=== PATIENT | female | born 1960 | race Caucasian/White ===

== ENCOUNTER → 2023-12-07 | Emergency (ER) | payer OTHER, SELFPAY ==
[~2023-12-07] MED LIST: ALBUTEROL 2.5 MG/3 ML NEB SOL ONE; IPRATROPIUM BROM 0.5MG/2.5ML ONE; METHYLPREDNISOLONE 125 MG INJ ONE
--- NOTE | 2023-12-07 19:43 | RAD REPORT ---
EXAM DESCRIPTION: RAD - Chest Single View - 12/07/2023 7:36 pm CLINICAL HISTORY: DYSPNEA COMPARISON: Chest Single View dated 05/23/2017; CHEST SINGLE VIEW dated 03/07/2011; CHEST PA AND LAT 2 VIEW dated 10/30/2004; Angio Aorta For Dissection dated 05/23/2017 FINDINGS: Lines: None. Lungs: No evidence of edema or pneumonia. Large lung volumes with flattening of the hemidiaphragms. Pleural: No significant pleural effusions or pneumothorax. Cardiac: The heart size is within normal limits. Mediastinum: Within normal limits. Bones: No acute fractures. Other: None IMPRESSION: No acute cardiopulmonary disease.
[2023-12-07 20:22] LABS: Absolute Basophils 0.1 K/uL (0-0.5); Absolute Eosinophils 0.1 K/uL (0-0.5); Absolute Lymphocytes (CBC) 1.6 K/uL (0.7-4.9); Absolute Monocytes 0.7 K/uL (0.1-1.3); Absolute Neutrophil 7.3 K/uL (1.8-8.0); Hemoglobin 11.7 g/dL (12.0-15.0); MCHC 33.4 g/dL (32.0-36.0); MCV 86.8 fL (80-100); MPV 7.7 fL (7.6-11.3); Monocytes % 6.9 % (3.3-12.3); Neutrophils % 75.1 % (41.7-73.7); Nucleated Red Blood Cells % 0.1 % (0-0); Platelets 419 thou/uL (152-406); RBC Red Blood Cell Count 4.04 M/uL (3.86-4.86); Red Cell Distribution Width 16.2 % (12.1-15.2)
[2023-12-07 20:35] LABS: ALT/SGPT 17 U/L (13-56); AST/SGOT 16 U/L (15-37); Albumin 3.8 g/dL (3.4-5.0); Alkaline Phosphatase 76 U/L (45-117); Anion Gap 8.4 mEq/L (5.0-15.0); BUN Blood Urea Nitrogen 8 mg/dL (7-18); Bicarbonate 27 mEq/L (21-32); Bilirubin Total 0.2 mg/dL (0.2-1.0); Globulin 3.7 g/dL (2.3-3.5); Glomerular Filtration Rate 87 ml/min (=/>90); Glucose Level 107 mg/dL (74-106); Magnesium 2.2 mg/dL (1.6-2.4); NT PRO-BNP 112 pg/mL (<125); Potassium 3.4 mEq/L (3.5-5.1); Protein, Total 7.5 g/dL (6.4-8.2); Sodium Level 138 mEq/L (136-145); Troponin High Sensitivity 5.1 pg/mL (<58.9)
[2023-12-07 20:41] LABS: Bilirubin Direct < 0.1 mg/dL (0-0.2); Bilirubin Indirect, Calculated ND mg/dL (0.2-0.8)
--- NOTE | 2023-12-07 20:53 | ER ---
Nurse's Notes [facility] Name: Liliya Shah Age: 63 yrs Sex: Female : 1960 Arrival Date: 12/07/2023 Time: 19:11 Bed 18 Private MD: Diagnosis: Acute bronchitis, unspecified Presentation: 12/06 19:24 Chief complaint: Patient states: Pt c/o difficulty breathing and cough that got worse tl4 last . Pt also c/o ongoing intermittent numbness in her face, neck and arm. Pt denies fever/chills. Coronavirus screen: At this time, the client does not indicate any symptoms associated with coronavirus-19. Ebola Screen: No symptoms or risks identified at this time. Initial Sepsis Screen: Does the patient meet any 2 criteria? No. Patient's initial sepsis screen is negative. Does the patient have a suspected source of infection? No. Patient's initial sepsis screen is negative. Risk Assessment: Do you want to hurt yourself or someone else? Patient reports no desire to harm self or others. Onset of symptoms was December 05, 2023. 19:24 Method Of Arrival: [facility]: [facility] tl4 19:24 Acuity: NIKITA 3 tl4 Triage Assessment: 19:29 General: Appears distressed, Behavior is calm, cooperative. Pain: Denies pain. EENT: tl4 Denies blurred vision nasal congestion, difficulty swallowing. Neuro: Level of Consciousness is awake, alert, obeys commands, Oriented to person, place, time, situation, Speech is normal, Facial symmetry appears normal. Cardiovascular: Capillary refill < 3 seconds Patient's skin is warm and dry. Rhythm is sinus tachycardia. Respiratory: Reports shortness of breath cough that is Breath sounds are coarse bilaterally. GI: No deficits noted. No signs and/or symptoms were reported involving the gastrointestinal system. : No deficits noted. No signs and/or symptoms were reported regarding the genitourinary system. Derm: No deficits noted. No signs and/or symptoms reported regarding the dermatologic system. Musculoskeletal: No deficits noted. No signs and/or symptoms reported regarding the musculoskeletal system. Historical: - Allergies: 19:27 Sulfa (Sulfonamide Antibiotics); tl4 - Home Meds: 19:27 hydrocodone-acetaminophen 10-325 mg Oral tablet [Active]; carvedilol 6.25 mg oral tl4 tablet 1 tab daily [Active]; - PMHx: 19:27 Hypertension; tl4 - PSHx: 19:27 Tonsillectomy; Hysterectomy; tl4 - Immunization history:: Adult Immunizations unknown. - Social history:: Smoking status: Patient reports the use of cigarette tobacco products, smokes one pack cigarettes per day. - Family history:: not pertinent. Screenin:33 [facility] ED Fall Risk Assessment (Adult) History of falling in the last 3 months, tl4 including since admission No falls in past 3 months (0 pts) Confusion or Disorientation No (0 pts) Intoxicated or Sedated No (0 pts) Impaired Gait No (0 pts) Mobility Assist Device Used No (0 pt) Altered Elimination No (0 pt) Score/Fall Risk Level 0 - 2 = Low Risk Oriented to surroundings, Maintained a safe environment, Educated pt \T\ family on fall prevention, incl call for assistance when getting out of bed, Assessed \T\ reinforced patient's understanding of fall precautions, Hourly rounding (assess needs \T\ fall precautionary measures) done, Used ambulatory aids as needed (educated on \T\ assisted with), Used gait belt as appropriate. Abuse screen: Denies threats or abuse. Denies injuries from another. Nutritional screening: No deficits noted. Tuberculosis screening: No symptoms or risk factors identified. Assessment: 20:06 Reassessment: Patient and/or family updated on plan of care and expected duration. Pain tl4 level reassessed. Patient is alert, oriented x 3, equal unlabored respirations, skin warm/dry/pink. Pt states she feels better, denies difficulty breathing. 21:07 Reassessment: Patient and/or family updated on plan of care and expected duration. Pain tl4 level reassessed. Patient is alert, oriented x 3, equal unlabored respirations, skin warm/dry/pink. Patient states symptoms have improved. Vital Signs: 19:24 BP 206 / 117; Pulse 117; Resp 24; Temp 98.9(O); Pulse Ox 94% on R/A; Weight 45.36 kg; tl4 Height 5 ft. 3 in. ; Pain 0/10; 19:30 BP 177 / 94; Pulse 111; Resp 18; Pulse Ox 94% ; tl4 20:00 BP 167 / 91; Pulse 102; Resp 22; Pulse Ox 95% on R/A; tl4 20:30 BP 154 / 90; Pulse 98; Resp 18; Pulse Ox 100% on R/A; tl4 21:09 BP 163 / 94; Pulse 109; Resp 22; Temp 98.5(O); Pulse Ox 96% on R/A; Pain 0/10; tl4 19:24 Body Mass Index 17.71 (45.36 kg, 160.02 cm) tl4 19:24 Pain Scale: Adult tl4 21:09 Pain Scale: Adult tl4 ED Course: 19:15 Patient arrived in ED. rt 19:15 Juan Francisco Moe MD is Attending Physician. rt 19:24 Gonzalez Gaston RN is Primary Nurse. tl4 19:27 Triage completed. tl4 19:33 Arm band placed on right wrist. tl4 19:33 Patient has correct armband on for positive identification. Placed in gown. Bed in low tl4 position. Call light in reach. Side rails up X2. Provided Education on: ED process. Client placed on continuous cardiac and pulse oximetry monitoring. NIBP monitoring applied. commissioned security officer on. Door closed. Noise minimized. Lights dimmed. Moved to private room. Warm blanket given. 19:34 No provider procedures requiring assistance completed. tl4 19:34 Maintain EMS IV. Dressing intact. Good blood return noted. Site clean \T\ dry. Gauge \T\ tl 4 site: 22g right AC. 19:38 XRAY Chest (1 view) In Process Unspecified. EDMS 20:41 Basic Metabolic Panel Sent. tl4 20:41 LFT's Sent. tl4 20:41 NT PRO-BNP Sent. tl4 20:41 Magnesium Sent. tl4 20:41 Troponin HS Sent. tl4 20:53 Frederick Saxena MD is Referral Physician. rt 21:10 IV discontinued, intact, bleeding controlled, No redness/swelling at site. Pressure tl4 dressing applied. Administered Medications: 20:40 Drug: MethylPrednisoLONE IVP 125 mg IVP once Route: IVP; Site: right antecubital; tl4 21:04 Follow up: Response: No adverse reaction tl4 20:40 Drug: DuoNeb Nebulize (3:1) (2.5 mg - 0.5 mg) 3 ml Nebulizer once Route: Nebulizer; tl4 21:03 Follow up: Response: No adverse reaction; Wheezing diminished tl4 Medication: 19:33 VIS not applicable for this client. tl4 Outcome: 20:53 Discharge ordered by . rt 21:10 Discharged to home ambulatory, with family, tl4 21:10 Condition: stable 21:10 Discharge instructions given to patient, Instructed on discharge instructions, follow up and referral plans. medication usage, Demonstrated understanding of instructions, follow-up care, medications, Prescriptions given X 2, 21:24 Patient left the ED. tl4 Signatures: Dispatcher [employer] [facility] Juan Francisco Moe MD MD rt Gonzalez Gaston RN RN tl4
--- NOTE | 2023-12-07 20:53 | EDPHYS ---
Physician Documentation [facility] Name: Liliya Shah Age: 63 yrs Sex: Female : 1960 Arrival Date: 12/07/2023 Time: 19:11 Bed 18 Private MD: ED Physician Juan Francisco Moe HPI: 12/06 20:33 This 63 yrs old Female presents to ER via EMS with complaints of Shortness of breath. rt 20:33 Patient presents to the ED with shortness of breath. The patient has reportedly had a rt cough, shortness of breath since . Is been progressively worsening. She states when she is short of breath, she developed some numbness to her face, arm. Denies that currently. Denies other acute complaints, symptoms are moderate in severity, no other aggravating or alleviating factors.. Historical: - Allergies: 19:27 Sulfa (Sulfonamide Antibiotics); tl4 - Home Meds: 19:27 hydrocodone-acetaminophen 10-325 mg Oral tablet [Active]; carvedilol 6.25 mg oral tl4 tablet 1 tab daily [Active]; - PMHx: 19:27 Hypertension; tl4 - PSHx: 19:27 Tonsillectomy; Hysterectomy; tl4 - Immunization history:: Adult Immunizations unknown. - Social history:: Smoking status: Patient reports the use of cigarette tobacco products, smokes one pack cigarettes per day. - Family history:: not pertinent. ROS: 20:33 Constitutional: Negative for fever, chills, and weight loss, Cardiovascular: Negative rt for chest pain, palpitations, and edema, Abdomen/GI: Negative for abdominal pain, nausea, vomiting, diarrhea, and constipation, MS/Extremity: Negative for injury and deformity, Skin: Negative for injury, rash, and discoloration, Psych: Negative for depression, anxiety, suicide ideation, homicidal ideation, and hallucinations, 20:33 Respiratory: Positive for cough, shortness of breath, 20:33 Neuro: Positive for tingling, Negative for speech changes, weakness, Exam: 20:33 Constitutional: This is a well developed, well nourished patient who is awake, alert, rt and in no acute distress. Head/Face: Normocephalic, atraumatic. Chest/axilla: Normal chest wall appearance and motion. Nontender with no deformity. No lesions are appreciated. Cardiovascular: Regular rate and rhythm with a normal S1 and S2. No gallops, murmurs, or rubs. Normal PMI, no JVD. No pulse deficits. Abdomen/GI: Soft, non-tender, with normal bowel sounds. No distension or tympany. No guarding or rebound. No evidence of tenderness throughout. Skin: Warm, dry with normal turgor. Normal color with no rashes, no lesions, and no evidence of cellulitis. MS/ Extremity: Pulses equal, no cyanosis. Neurovascular intact. Full, normal range of motion. Neuro: Awake and alert, GCS 15, oriented to person, place, time, and situation. Cranial nerves II-XII grossly intact. Motor strength 5/5 in all extremities. Sensory grossly intact. Cerebellar exam normal. Normal gait. Psych: Awake, alert, with orientation to person, place and time. Behavior, mood, and affect are within normal limits. 20:33 ECG was reviewed by the Attending Physician. 20:33 Respiratory: Wheezes, diminished breath sounds heard on all lung hannah, no respiratory distress, Vital Signs: 19:24 BP 206 / 117; Pulse 117; Resp 24; Temp 98.9(O); Pulse Ox 94% on R/A; Weight 45.36 kg; tl4 Height 5 ft. 3 in. ; Pain 0/10; 19:30 BP 177 / 94; Pulse 111; Resp 18; Pulse Ox 94% ; tl4 20:00 BP 167 / 91; Pulse 102; Resp 22; Pulse Ox 95% on R/A; tl4 20:30 BP 154 / 90; Pulse 98; Resp 18; Pulse Ox 100% on R/A; tl4 21:09 BP 163 / 94; Pulse 109; Resp 22; Temp 98.5(O); Pulse Ox 96% on R/A; Pain 0/10; tl4 19:24 Body Mass Index 17.71 (45.36 kg, 160.02 cm) tl4 19:24 Pain Scale: Adult tl4 21:09 Pain Scale: Adult tl4 MDM: 19:16 Patient medically screened. rt 12/07 01:02 Differential Diagnosis Bronchospasm, COPD, CHF. Data reviewed: vital signs, nurses rt notes, lab test result(s), EKG, radiologic studies. Consideration of Admission/Observation Escalation of care including admission/observation considered. Vital signs normalized with treatment in the ED, patient significantly better symptomatically, stable oxygenation. No signs of CHF or pneumonia on chest x-ray. Stable for outpatient care, return precautions discussed.. I considered the following discharge prescriptions or medication management in the emergency department Medications were administered in the Emergency Department. See MAR. Independent interpretation of the following test(s) in the Emergency Department X-Ray: My interpretation is No pneumonia seen on interpretation of x-ray images. Care significantly affected by the following chronic conditions: Hypertension. Counseling: I had a detailed discussion with the patient and/or guardian regarding the historical points, exam findings, and any diagnostic results supporting the discharge/admit diagnosis, lab results, radiology results, the need for outpatient follow up, to return to the emergency department if symptoms worsen or persist or if there are any questions or concerns that arise at home. 12/06 19:17 Order name: Basic Metabolic Panel; Complete Time: 20:46 rt 12/06 19:17 Order name: CBC with Diff; Complete Time: 20:46 rt 12/06 19:17 Order name: LFT's; Complete Time: 20:46 rt 12/06 19:17 Order name: Magnesium; Complete Time: 20:46 rt 12/06 19:17 Order name: NT PRO-BNP; Complete Time: 20:46 rt 12/06 19:17 Order name: Troponin HS; Complete Time: 20:46 rt 12/06 19:17 Order name: XRAY Chest (1 view); Complete Time: 19:50 rt 12/06 19:17 Order name: EKG; Complete Time: 19:17 rt 12/06 19:17 Order name: Cardiac monitoring; Complete Time: 19:36 rt 12/06 19:17 Order name: EKG - Nurse/Tech; Complete Time: 19:36 rt 12/06 19:17 Order name: IV Saline Lock; Complete Time: 19:36 rt 12/06 19:17 Order name: Labs collected and sent; Complete Time: 20:40 rt 12/06 19:17 Order name: O2 Per Protocol; Complete Time: 19:36 rt 12/06 19:17 Order name: O2 Sat Monitoring; Complete Time: 19:36 rt EC/23 20:33 Rate is 111 beats/min. Rhythm is regular, Sinus tachycardia with No ectopy. QRS [place] is rt Normal. ME interval is normal. QRS interval is normal. QT interval is normal. No Q waves. No ST changes noted. Interpreted by me. Administered Medications: 20:40 Drug: MethylPrednisoLONE IVP 125 mg IVP once Route: IVP; Site: right antecubital; tl4 21:04 Follow up: Response: No adverse reaction tl4 20:40 Drug: DuoNeb Nebulize (3:1) (2.5 mg - 0.5 mg) 3 ml Nebulizer once Route: Nebulizer; tl4 21:03 Follow up: Response: No adverse reaction; Wheezing diminished tl4 Disposition Summary: 12/07/23 20:53 Discharge Ordered Notes: Location: Home rt Problem: new rt Symptoms: have improved rt Condition: Stable rt Diagnosis - Acute bronchitis, unspecified rt Followup: rt - With: Frederick Saxena MD - When: 5 - 6 days - Reason: Discharge Instructions: - Discharge Summary Sheet rt - Acute Bronchitis, Adult rt Forms: - Medication Reconciliation Form rt - Thank You Letter rt - Antibiotic Education rt - Prescription Opioid Use rt - Patient Portal Instructions rt - Leadership Thank You Letter rt Prescriptions: - albuterol sulfate 90 mcg/actuation Inhalation HFA Aerosol Inhaler - inhale 3 puff INHALATION route every 2 to 4 hours as needed for bronchospasm; 2 rt Each; Refills: 0, Product Selection Permitted - Prednisone 20 mg Oral Tablet - take 1 tablet ORAL route once daily for 5 days; 5 tablet; Refills: 0, Product rt Selection Permitted Signatures: Dispatcher [employer] Juan Francisco Miller MD MD rt Gonzalez Gaston RN RN tl4
[2023-12-07 21:52] VITALS: BP 163/94; TEMP 98.5; O2SAT 96
--- NOTE | 2023-12-09 14:18 | EKG ---
Test Date: 2023-12-07 Test Time: 19:14:34 Dehydration Unit Operator: HERSON MEASUREMENT RESULTS: Intervals: Rate: 111 MS: 174 QRSD: 70 QT: 328 QTc: 446 [place]: P: 88 MS: 174 QRS: 87 T: -76 INTERPRETIVE STATEMENTS: Sinus tachycardia Biatrial enlargement Anteroseptal infarct, age undetermined Abnormal ECG Compared to ECG 05/23/2017 15:11:23 Atrial abnormality now present Myocardial infarct finding now present Sinus bradycardia no longer present Electronically Signed On 12-09-23 14:14:37 CDT by Chencho Stevenson
== END ==
LOC: ER 19:11
DX: J20.9 Acute bronchitis, unspecified (principal); Z11.52 Encounter for screening for COVID-19; I10 Essential (primary) hypertension; F17.210 Nicotine dependence, cigarettes, uncomplicated; Z88.2 Allergy status to sulfonamides
CPT/HCPCS: 93005; 85025; 80048; 36415; 83735; 80076; 84484; 83880; 71045; 94640; 96374; 99285; J7613; J7644; J2930

== ENCOUNTER 2024-05-11 11:41 | Emergency (ER) | payer OTHER ==
--- NOTE | 2024-05-11 12:51 | RAD REPORT ---
EXAM DESCRIPTION: Brett Single View05/11/2024 12:36 pm CLINICAL HISTORY: Chest pain COMPARISON: November 2023 FINDINGS: Lungs are markedly hyperaerated. The lungs appear clear of acute infiltrate. The heart is normal size IMPRESSION: COPD without visualization of an abnormality
[2024-05-11 13:26] LABS: PT Prothrombin Time 11.5 SECONDS (9.4-12.5); Protime INR 1.03
[2024-05-11 13:32] LABS: Absolute Basophils 0.1 K/uL (0-0.5); Absolute Eosinophils 0.2 K/uL (0-0.5); Basophils % 1.3 % (0-1.3)
[2024-05-11 13:40] LABS: ALT/SGPT 21 U/L (13-56); AST/SGOT 17 U/L (15-37); Albumin 3.9 g/dL (3.4-5.0); Alkaline Phosphatase 72 U/L (45-117); Anion Gap 7.2 mEq/L (5.0-15.0); BUN Blood Urea Nitrogen 10 mg/dL (7-18); Bicarbonate 29 mEq/L (21-32); Bilirubin Total 0.3 mg/dL (0.2-1.0); Globulin 3.9 g/dL (2.3-3.5); Glomerular Filtration Rate 72 ml/min (=/>90); Glucose Level 102 mg/dL (74-106); Magnesium 2.2 mg/dL (1.6-2.4); NT PRO-BNP 257 pg/mL (<125); Potassium 4.2 mEq/L (3.5-5.1); Protein, Total 7.8 g/dL (6.4-8.2); Sodium Level 137 mEq/L (136-145); Troponin High Sensitivity 3.9 pg/mL (<58.9)
[2024-05-11 13:41] LABS: Bilirubin Direct < 0.2 mg/dL (0-0.2); Bilirubin Indirect, Calculated 0.1 mg/dL (0.2-0.8)
[2024-05-11 13:58] LABS: Absolute Lymphocytes (CBC) 2.3 K/uL (0.7-4.9); Absolute Monocytes 0.6 K/uL (0.1-1.3); Absolute Neutrophil 3.8 K/uL (1.8-8.0); Eosinophils % 2.7 % (0-4.4); Hematocrit 40.9 % (36.0-45.0); Hemoglobin 13.2 g/dL (12.0-15.0); Lymphocytes % 32.6 % (15.3-44.8); MCHC 32.2 g/dL (32.0-36.0); MPV 8.5 fL (7.6-11.3); Monocytes % 8.9 % (3.3-12.3); Neutrophils % 54.5 % (41.7-73.7); Nucleated Red Blood Cells % 0.1 % (0-0); Platelets 458 thou/uL (152-406); Red Cell Distribution Width 16.7 % (12.1-15.2)
--- NOTE | 2024-05-11 14:06 | RAD REPORT ---
EXAM DESCRIPTION: CT - Head C Spine Mpr Wo Con - 05/11/2024 1:42 pm CLINICAL HISTORY: Left numbness COMPARISON: [address] TECHNIQUE: Computed axial tomography of the head and cervical spine was obtained. Sagittal and coronal reconstruction was performed. All CT scans are performed using dose optimization technique as appropriate and may include automated exposure control or mA/KV adjustment according to patient size. FINDINGS: An intracranial bleed is not seen. The ventricles are normal in caliber. No significant hypodensity within the brain. An extra-axial fluid collection is not noted. Fluid within the visualized sinuses and mastoids is not seen A cervical fracture is not visualized. No dislocation is noted. Mild anterior subluxation C2 on C3 and C3 on C4. Mild posterior subluxation C5 on C6. Disc bulge and osteophytes C4-5 results moderate narrowing of the left neural foramina. Disc bulge an d osteophytes C5-6 results moderate narrowing right neural foramina. IMPRESSION: No acute intracranial abnormality is seen. A cervical fracture is not visualized. 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 Spondylosis C5-6 results in moderate right foraminal stenosis If the patient continues to have symptoms to suggest intracranial /spinal cord pathology then MRI wou ld be recommended
--- NOTE | 2024-05-11 14:20 | RAD REPORT ---
EXAM DESCRIPTION: CTHead angio05/11/2024 1:45 pm CLINICAL HISTORY: Left numbness COMPARISON: none TECHNIQUE: 100 cc Isovue [address] angiogram of the head was obtained. 3D MIPS reconstruction performed. All CT scans are performed using dose optimization technique as appropriate and may include automated exposure control or mA/KV adjustment according to patient size. FINDINGS: The distal internal carotid, basilar, anterior cerebral, middle cerebral and posterior cer ebral arteries do not demonstrate a significant stenosis Focal bulge right posterior communicating artery has the appearance of an infundibulum No large vessel occlusion IMPRESSION: Right posterior communicating artery infundibulum
--- NOTE | 2024-05-11 14:21 | RAD REPORT ---
EXAM DESCRIPTION: Prisca Angio05/11/2024 1:45 pm CLINICAL HISTORY: Left numbness COMPARISON: None TECHNIQUE: 100 cc Isovue [address] angiogram of the neck was obtained. 3D MIPS reconstruction performed. All CT scans are performed using dose optimization technique as appropriate and may include automated exposure control or mA/KV adjustment according to patient size. FINDINGS: Visualized great vessels unremarkable Common carotid, internal carotid and external carotid arteries demonstrate mild plaque Vertebral arteries unremarkable No dissection is seen. No high-grade stenosis [place] Mild stenosis 0 to 49 % Moderate stenosis 50-69% Severe stenosis 70-99% IMPRESSION: No significant vascular abnormality is displayed
[2024-05-11] MEDS ORDERED: ASPIRIN 81 MG CHEWABLE TABLET ONE (15:54)
[2024-05-11] MEDS ORDERED: FOLIC ACID 5 MG/ML VIAL ONE (15:55)
--- NOTE | 2024-05-11 18:11 | ER ---
Nurse's Notes [facility] Name: Liliya Shah Age: 63 yrs Sex: Female : 1960 Arrival Date: 05/11/2024 Time: 11:41 Bed 16 Private MD: Diagnosis: Cervical disc disorder with radiculopathy-multi level;Paresthesia of skin;Dorsalgia, unspecified;Cervicalgia Presentation: 05/11 12:10 Chief complaint: Patient states: numbness in left side of face and neck and there is iw pressure in left side of neck ,started , it comes and goes, sometimes feels like her chest is sore and the middle of her back hurts too, sometimes the numbness goes down the back side of left arm. Coronavirus screen: At this time, the client does not indicate any symptoms associated with coronavirus-19. Ebola Screen: No symptoms or risks identified at this time. Initial Sepsis Screen: Does the patient meet any 2 criteria? No. Patient's initial sepsis screen is negative. Does the patient have a suspected source of infection? No. Patient's initial sepsis screen is negative. Risk Assessment: Do you want to hurt yourself or someone else? Patient reports no desire to harm self or others. Onset of symptoms was May 07, 2024. 12:10 Method Of Arrival: Ambulatory iw 12:10 Acuity: NIKITA 3 iw Historical: - Allergies: 12:12 Sulfa (Sulfonamide Antibiotics); iw - PMHx: 12:12 Hypertension; iw - PSHx: 12:12 hysterectomy; Tonsillectomy; iw - Immunization history:: Adult Immunizations not up to date. - Infectious Disease History:: Denies. - Social history:: Smoking status: Patient reports the use of cigarette tobacco products, smokes one pack cigarettes per day. Screenin:08 [facility] ED Fall Risk Assessment (Adult) History of falling in the last 3 months, ph including since admission No falls in past 3 months (0 pts) Confusion or Disorientation No (0 pts) Intoxicated or Sedated No (0 pts) Impaired Gait No (0 pts) Mobility Assist Device Used No (0 pt) Altered Elimination No (0 pt) Score/Fall Risk Level 0 - 2 = Low Risk Oriented to surroundings, Maintained a safe environment, Hourly rounding (assess needs \T\ fall precautionary measures) done. Abuse screen: Denies threats or abuse. Denies injuries from another. Nutritional screening: No deficits noted. Tuberculosis screening: No symptoms or risk factors identified. Assessment: 16:57 General: Appears in no apparent distress. Behavior is calm, cooperative. Pain: ph Complains of pain in chest, L side of neck. Neuro: Level of Consciousness is awake, alert, obeys commands, Oriented to person, place, time, situation, Reports numbness paresthesias. Cardiovascular: Capillary refill < 3 seconds in bilateral fingers Patient's skin is warm and dry. Respiratory: Airway is patent Respiratory effort is even, unlabored. Derm: Skin is pink, warm \T\ dry. 17:52 Reassessment: Patient appears in no apparent distress at this time. Patient and/or ph family updated on plan of care and expected duration. Pain level reassessed. Patient is alert, oriented x 3, equal unlabored respirations, skin warm/dry/pink. Vital Signs: 12:10 BP 159 / 103; Pulse 85; Resp 16; Temp 98.1; Pulse Ox 98% on R/A; Weight 45.36 kg; iw Height 5 ft. 3 in. ; Pain 0/10; 16:59 BP 178 / 89; Pulse 82; Resp 18; Pulse Ox 95% on R/A; ph 17:52 BP 132 / 88; Pulse 91; Resp 18; Temp 97.9; Pulse Ox 98% on R/A; ph 12:10 Body Mass Index 17.71 (45.36 kg, 160.02 cm) iw 12:10 Pain Scale: Adult iw ED Course: 11:43 Patient arrived in ED. im 11:44 Edgar Brown PA is PHCP. cp 11:44 Faisal Kirkpatrick MD is Attending Physician. cp 12:12 Triage completed. iw 12:12 Arm band placed on. iw 12:37 XRAY Chest (1 view) In Process Unspecified. EDMS 13:22 Initial lab(s) drawn, by me, sent to lab. Inserted saline lock: 22 gauge in right zm forearm, using aseptic technique. Blood collected. Flushed with 10 mL NS. 13:23 Basic Metabolic Panel Sent. zm 13:23 CBC with Diff Sent. zm 13:23 LFT's Sent. zm 13:23 Magnesium Sent. zm 13:23 NT PRO-BNP Sent. zm 13:23 PT-INR Sent. zm 13:23 Troponin HS Sent. zm 13:44 CT Head C Spine In Process Unspecified. EDMS 13:44 CT Neck Angio In Process Unspecified. EDMS 13:44 Head angio In Process Unspecified. EDMS 15:48 Doris Modi, RN is Primary Nurse. ph 16:03 EKG done, by ED staff, reviewed by Edgar GARCIA. zm 16:09 Patient has correct armband on for positive identification. Bed in low position. Call ph light in reach. Side rails up X 1. Pulse ox on. NIBP on. 17:53 No provider procedures requiring assistance completed. ph 18:24 IV discontinued, intact, bleeding controlled, No redness/swelling at site. Pressure ph dressing applied. Administered Medications: 16:41 Drug: foLIC Acid IVPB 1 mg IVPB once Route: IVPB; Site: right wrist; ph 16:41 Drug: Aspirin PO Chewable Tablet 324 mg PO once; 81 mg tablets x 4 Route: PO; ph Medication: 16:08 VIS not applicable for this client. ph Outcome: 18:10 Discharge ordered by MD. cp 18:24 Discharged to home ambulatory, with significant other, ph 18:24 Condition: good 18:24 Discharge instructions given to patient, Instructed on discharge instructions, follow up and referral plans. medication usage, Demonstrated understanding of instructions, follow-up care, medications, Prescriptions given X 2, 18:25 Patient left the ED. ph Signatures: Dispatcher [employer] Judy Cash RN RN Doris Modi RN RN ph Page, Corey, PA PA cp Martinez, Zaina zm Mendoza, Itzel Corrections: (The following items were deleted from the chart) 18:24 17:52 BP 132 / 88; Pulse 91bpm; Resp 18bpm; Pulse Ox 98% RA; ph ph
--- NOTE | 2024-05-11 18:11 | EDPHYS ---
Physician Documentation [facility] Name: Liliya Shah Age: 63 yrs Sex: Female : 1960 Arrival Date: 05/11/2024 Time: 11:41 Bed 16 Private MD: ED Physician Faisal Kirkpatrick HPI: 05/11 12:25 This 63 yrs old Female presents to ER via Ambulatory with complaints of Numbness Of cp Face, Back Pain. 12:25 The patient's problem is reported as numbness to left side of head and face, left side cp headache and neck pain. denies weakness, denies change in vision. reports symptoms started last , intermittent but persistent for past 2 days. 12:25 Associated signs and symptoms: Pertinent positives: chest pain. Patient's baseline: cp Neuro: alert and fully oriented, Motor: no deficits, Ambulation: walks without assistance, Speech: normal. Historical: - Allergies: 12:12 Sulfa (Sulfonamide Antibiotics); iw - PMHx: 12:12 Hypertension; iw - PSHx: 12:12 hysterectomy; Tonsillectomy; iw - Immunization history:: Adult Immunizations not up to date. - Infectious Disease History:: Denies. - Social history:: Smoking status: Patient reports the use of cigarette tobacco products, smokes one pack cigarettes per day. ROS: 12:30 Constitutional: Negative for body aches, chills, fever, poor PO intake, cp 12:30 Eyes: Negative for injury, pain, redness, and discharge, cp 12:30 ENT: Negative for drainage from ear(s), ear pain, sore throat, difficulty swallowing, difficulty handling secretions, 12:30 Cardiovascular: Positive for chest pain, Negative for edema, palpitations, 12:30 Respiratory: Negative for cough, shortness of breath, wheezing, 12:30 Abdomen/GI: Negative for abdominal pain, vomiting, diarrhea, constipation, 12:30 Skin: Negative for cellulitis, rash, 12:30 Neuro: Positive for headache, numbness, of the left side of head, Negative for altered mental status, speech changes, syncope, weakness, 12:30 Back: Positive for pain at rest, cp 12:30 : Negative for urinary symptoms, cp 12:30 All other systems are negative, Exam: 12:33 Constitutional: The patient appears in no acute distress, alert, awake, cp non-diaphoretic, non-toxic, well developed, well nourished, 12:33 Head/Face: Normocephalic, atraumatic. cp 12:33 Eyes: Periorbital structures: appear normal, Pupils: equal, round, and reactive to light and accomodation, Extraocular movements: intact throughout, Conjunctiva: normal, no exudate, no injection, Sclera: no appreciated abnormality, Lids and lashes: appear normal, bilaterally, 12:33 ENT: External ear(s): are unremarkable, Nose: is normal, Mouth: Lips: moist, Oral mucosa: pink and intact, moist, Posterior pharynx: Airway: no evidence of obstruction, patent, 12:33 Neck: C-spine: vertebral tenderness, that is mild, appreciated at C5 and C6, ROM/movement: pain, that is mild, with any movement, limited range of motion, is not appreciated, nuchal rigidity, is not appreciated, 12:33 Chest/axilla: Inspection: normal, 12:33 Cardiovascular: Rate: normal, Rhythm: regular, Edema: is not appreciated, JVD: is not appreciated, 12:33 Respiratory: the patient does not display signs of respiratory distress, Respirations: normal, no retractions, labored breathing, is not present, Breath sounds: are clear throughout, no decreased breath sounds, no stridor, no wheezing, 12:33 Abdomen/GI: Inspection: abdomen appears normal, Palpation: abdomen is soft and non-tender, in all quadrants, 12:33 Back: ROM is normal, vertebral tenderness, is not appreciated, 12:33 Neuro: Orientation: to person, place \T\ time. Mentation: is normal, Cerebellar function: is grossly normal, Motor: moves all fours, no focal deficits, Sensation: numbness, that is mild, of the left side of face, Gait: is steady, at a normal pace, without difficulty, 15:20 Radiologist reports: no acute findings cp 16:05 ECG was reviewed by the Attending Physician. cp Vital Signs: 12:10 BP 159 / 103; Pulse 85; Resp 16; Temp 98.1; Pulse Ox 98% on R/A; Weight 45.36 kg; iw Height 5 ft. 3 in. ; Pain 0/10; 16:59 BP 178 / 89; Pulse 82; Resp 18; Pulse Ox 95% on R/A; ph 17:52 BP 132 / 88; Pulse 91; Resp 18; Temp 97.9; Pulse Ox 98% on R/A; ph 12:10 Body Mass Index 17.71 (45.36 kg, 160.02 cm) iw 12:10 Pain Scale: Adult iw MDM: 12:18 Patient medically screened. cp 18:10 Data reviewed: vital signs, nurses notes, lab test result(s), EKG, radiologic studies, cp CT scan, plain films, and as a result, I will discharge patient. 18:10 Differential diagnosis: CVA, TIA, metabolic disorder, drug effects, cardiac arrhythmia, cp cervical radiculopathy. I considered the following discharge prescriptions or medication management in the emergency department Medications were administered in the Emergency Department. See MAR. Independent interpretation of the following test(s) in the Emergency Department EKG: See my EKG interpretation above. Test considered but Not performed: MRI: Head and c-spine not done as MRI not available. Care significantly affected by the following chronic conditions: Hypertension. Counseling: I had a detailed discussion with the patient and/or guardian regarding the historical points, exam findings, and any diagnostic results supporting the discharge/admit diagnosis, lab results, radiology results, the need for outpatient follow up, a family practitioner, to return to the emergency department if symptoms worsen or persist or if there are any questions or concerns that arise at home. Response to treatment: the patient's symptoms have mildly improved after treatment, and as a result, I will discharge patient. 05/11 12:20 Order name: Basic Metabolic Panel; Complete Time: 15:17 05/11 15:17 Interpretation: Normal except: GFR 72. 05/11 12:20 Order name: CBC with Diff; Complete Time: 15:17 05/11 12:20 Order name: LFT's; Complete Time: 15:17 05/11 12:20 Order name: Magnesium; Complete Time: 15:17 05/11 12:20 Order name: NT PRO-BNP; Complete Time: 15:17 05/11 12:20 Order name: PT-INR; Complete Time: 15:17 05/11 12:20 Order name: Troponin HS; Complete Time: 15:17 05/11 15:23 Interpretation: Reviewed. 05/11 12:20 Order name: XRAY Chest (1 view); Complete Time: 15:17 cp 05/11 12:20 Order name: CT Head C Spine; Complete Time: 15:17 cp 05/11 12:20 Order name: CT Neck Angio; Complete Time: 15:17 cp 05/11 12:40 Order name: Head angio; Complete Time: 15:17 EDMS 05/11 15:23 Interpretation: Report reviewed. cp 05/11 12:20 Order name: Cardiac monitoring; Complete Time: 16:03 cp 05/11 12:20 Order name: EKG - Nurse/Tech; Complete Time: 16:03 cp 05/11 12:20 Order name: IV Saline Lock; Complete Time: 13:23 cp 05/11 12:20 Order name: Labs collected and sent; Complete Time: 13:23 cp 05/11 12:20 Order name: O2 Per Protocol; Complete Time: 15:48 cp 05/11 12:20 Order name: O2 Sat Monitoring; Complete Time: 15:48 cp EC:05 Rate is 78 beats/min. Rhythm is regular. LA interval is normal. QRS interval is normal. cp QT interval is normal. Interpreted by me. Reviewed by me. Administered Medications: 16:41 Drug: foLIC Acid IVPB 1 mg IVPB once Route: IVPB; Site: right wrist; ph 16:41 Drug: Aspirin PO Chewable Tablet 324 mg PO once; 81 mg tablets x 4 Route: PO; ph Disposition Summary: 05/11/24 18:10 Discharge Ordered Notes: Location: Home cp Problem: new cp Symptoms: have improved cp Condition: Stable cp Diagnosis - Cervical disc disorder with radiculopathy - multi level cp - Paresthesia of skin cp - Dorsalgia, unspecified cp - Cervicalgia cp Followup: cp - With: Private Physician - When: 5 - 6 days - Reason: Recheck today's complaints Discharge Instructions: - Discharge Summary Sheet cp - Acute Back Pain, Adult cp - Paresthesia cp - Neck Exercises cp - Back Exercises cp Forms: - Medication Reconciliation Form cp - Antibiotic Education cp - Prescription Opioid Use cp - Patient Portal Instructions cp - Leadership Thank You Letter cp Prescriptions: - Medrol (Delfin) 4 mg Oral Tablets, Dose Pack - take 1 tablet ORAL route as directed - follow package instructions; 1 packet; cp Refills: 0, Product Selection Permitted - methocarbamol 750 mg Oral tablet - take 1 tablet ORAL route 3 times per day; 30 tablet; Refills: 0, Product cp Selection Permitted Addendum: 05/15/2024 07:46 I was immediately available for consultation during this patient's visit. I did not e c2 personally see the patient or discuss the patient with the AUNDREA. . Signatures: Dispatcher [employer] Judy Cash RN RN iw Doris Modi RN RN ph Stephanie, Edgar, PA PA cp Faisal Kirkpatrick MD MD ec2 Corrections: (The following items were deleted from the chart) 05/11 12:20 12:20 Chest Single View+RAD.RAD.BRZ ordered. EDMS EDMS 12:21 Head C Spine MPR Wo Con+CT.RAD.BRZ ordered. EDMS EDMS : 12:21 Neck Angio+CT.RAD.BRZ ordered. EDMS EDMS 05/12 16:50 05/11 12:30 All other systems are negative, cp cp
[2024-05-11 19:19] VITALS: TEMP 97.9; O2SAT 98
[2024-05-11 19:27] VITALS: BP 147/81
--- NOTE | 2024-05-12 12:41 | EKG ---
Test Date: 2024-05-11 Test Time: 15:58:19 Prorate Clerk: STEF MEASUREMENT RESULTS: Intervals: Rate: 78 FL: 122 QRSD: 68 QT: 320 QTc: 364 Hume: P: 82 FL: 122 QRS: 76 T: -89 INTERPRETIVE STATEMENTS: Normal sinus rhythm ST & T wave abnormality, consider inferolateral ischemia Abnormal ECG Compared to ECG 12/07/2023 19:14:34 ST (T wave) deviation now present Possible ischemia now present Sinus tachycardia no longer present Atrial abnormality no longer present Myocardial infarct finding no longer present Electronically Signed On 05-12-24 12:38:33 CDT by Nadir Rodríguez
== END 2024-05-11 18:25 | disposition home or self-care (01) ==
LOC: ER 11:41
DX: M50.10 Cervical disc disorder with radiculopathy, unspecified cervical region (principal); R20.2 Paresthesia of skin; M54.9 Dorsalgia, unspecified; I10 Essential (primary) hypertension; F17.210 Nicotine dependence, cigarettes, uncomplicated
CPT/HCPCS: 93005; 85025; 80048; 36415; 83735; 85610; 80076; 84484; 83880; 70450; 72125; 70496; 70498; 71045; Q9967; 96374; 99285

== ENCOUNTER 2024-08-24 18:37 | Emergency (ER) | payer OTHER ==
[2024-08-24 19:20] LABS: Absolute Basophils 0.1 K/uL (0-0.5); Absolute Lymphocytes (CBC) 0.9 K/uL (0.7-4.9); Absolute Monocytes 0.1 K/uL (0.1-1.3); Absolute Neutrophil 4.1 K/uL (1.8-8.0); Basophils % 1.1 % (0-1.3); Eosinophils % 0.1 % (0-4.4); Hematocrit 38.3 % (36.0-45.0); Hemoglobin 13.1 g/dL (12.0-15.0); Lymphocytes % 17.5 % (15.3-44.8); MCH 32.6 pg (27.0-35.0); MCHC 34.1 g/dL (32.0-36.0); MCV 95.6 fL (80-100); Monocytes % 1.9 % (3.3-12.3); Neutrophils % 79.4 % (41.7-73.7); Nucleated Red Blood Cells % 0.1 % (0-0); Platelets 443 thou/uL (152-406); Red Cell Distribution Width 15.6 % (12.1-15.2)
[2024-08-24 19:42] LABS: Anion Gap 8.8 mEq/L (5.0-15.0); Magnesium 2.2 mg/dL (1.6-2.4); Potassium 3.8 mEq/L (3.5-5.1); Troponin High Sensitivity 3.5 pg/mL (<58.9)
--- NOTE | 2024-08-24 20:20 | RAD REPORT ---
EXAMINATION: ONE VIEW CHEST XR CLINICAL INDICATION: Female, 64 years old.,CHEST PAIN TECHNIQUE: Frontal chest projection is submitted. Examination is limited by patient positioning and t echnique. COMPARISON: 05/11/2024 FINDINGS: The lungs are again mildly hyperinflated and clear. No pneumothorax or sizable effusion. The heart i s normal in size. Mediastinal contours are unremarkable. IMPRESSION: No acute intrathoracic abnormalities.
[2024-08-24] MEDS ORDERED: FENTANYL CITR 100 MCG/2 ML ONE (21:04)
--- NOTE | 2024-08-24 23:16 | RAD REPORT ---
EXAM: Angio Aorta For Dissection HISTORY: [facility] MAIN none PAIN Bed Name: 19 COMPARISON: 05/23/2017 TECHNIQUE: Multiple contiguous axial images were obtained a CTA of the chest and abdomen with contras t per aortic dissection protocol. Sagittal and coronal 3-D MIP reformats were performed. One or more of the following dose reduction techniques were used: Automated exposure control, adjustment of the mA and kV according to patient size, and iterative reconstruction. Unless otherwise specified, incidental findings do not require dedicated imaging follow-up. FINDINGS: PULMONARY ARTERIES: Normal in caliber without filling defects to suggest pulmonary emboli. MEDIASTINUM: No hilar or mediastinal lymphadenopathy. LUNGS: No focal infiltrates or masses. PLEURAL SPACE: No pleural effusion or pneumothorax. LIVER: Unremarkable. KIDNEYS: Unremarkable. SPLEEN: Unremarkable. PANCREAS: Unremarkable. Prominent caliber of the common bile duct measuring 7 mm. BOWEL: Apparent wall thickening of the distal colon and rectum, may relate to under distention.. RETROPERITONEUM: No lymphadenopathy BONES: Healing or healed lateral left eighth and ninth rib fractures. ASCENDING THORACIC AORTA: Normal caliber without evidence of dissection or aneurysmal dilatation. DESCENDING THORACIC AORTA: Normal caliber without evidence of dissection or aneurysmal dilatation. ABDOMINAL AORTA: Normal caliber without evidence of dissection or aneurysmal dilatation. Mild atherosclerotic calcifications throughout. CELIAC TRUNK: Patent SMA: Patent ALYCIA: Patent RENAL ARTERIES: Bilateral single renal arteries without significant atherosclerotic disease IMPRESSION: No evidence of thoracic or abdominal aortic aneurysm or dissection. Prominent caliber of the common bile duct measuring 7 mm. Please correlate with bilirubin levels. Healing or healed left lateral eighth and ninth rib fractures.
--- NOTE | 2024-08-24 23:24 | ER ---
Nurse's Notes [facility] Name: Liliya Shah Age: 64 yrs Sex: Female : 1960 Arrival Date: 08/24/2024 Time: 18:37 Bed 19 Private MD: Diagnosis: Chest pain, unspecified;Mid back pain;Healing rib fractures on left Presentation: 08/24 18:51 Chief complaint: EMS states: Pt reports a pressure pain under her left breast and mid jb4 lumbar back pain.. Pt was given 1 nitro and 4 baby ASA. Coronavirus screen: At this time, the client does not indicate any symptoms associated with coronavirus-19. Ebola Screen: No symptoms or risks identified at this time. Initial Sepsis Screen: Does the patient meet any 2 criteria? No. Patient's initial sepsis screen is negative. Does the patient have a suspected source of infection? No. Patient's initial sepsis screen is negative. Risk Assessment: Do you want to hurt yourself or someone else? Patient reports no desire to harm self or others. Onset of symptoms was August 24, 2024. Transition of care: patient was not received from another setting of care. 18:51 Method Of Arrival: EMS: [facility] jb4 18:51 Acuity: NIKITA 2 jb4 Historical: - Allergies: 19:05 Sulfa (Sulfonamide Antibiotics); jb4 - Home Meds: 19:05 carvedilol 6.25 mg Oral tablet 1 tab daily [Active]; hydrocodone-acetaminophen 10-325 jb4 mg Oral tablet [Active]; amlodipine oral [Active]; - PMHx: 19:05 Hypertension; jb4 - PSHx: 19:05 hysterectomy; Tonsillectomy; jb4 - Immunization history:: Adult Immunizations up to date. - Infectious Disease History:: Denies. - Social history:: Smoking status: Patient reports the use of cigarette tobacco products, smokes one pack cigarettes per day. Screenin:07 [facility] ED Fall Risk Assessment (Adult) History of falling in the last 3 months, jb4 including since admission No falls in past 3 months (0 pts) Confusion or Disorientation No (0 pts) Intoxicated or Sedated No (0 pts) Impaired Gait No (0 pts) Mobility Assist Device Used No (0 pt) Altered Elimination No (0 pt) Score/Fall Risk Level 0 - 2 = Low Risk Oriented to surroundings, Maintained a safe environment. Abuse screen: Denies threats or abuse. Nutritional screening: No deficits noted. Tuberculosis screening: No symptoms or risk factors identified. Assessment: 19:07 General: Appears in no apparent distress. comfortable, Behavior is calm, cooperative, jb4 appropriate for age. Pain: Complains of pain in left breast Pain does not radiate. Pain currently is 4 out of 10 on a pain scale. Neuro: Level of Consciousness is awake, alert, obeys commands, Oriented to person, place, time, situation. Cardiovascular: Patient's skin is warm and dry. Respiratory: Airway is patent Respiratory effort is even, unlabored, Respiratory pattern is regular, symmetrical. Derm: Skin is intact, Skin is pink, warm \T\ dry. Musculoskeletal: Circulation, motion, and sensation intact. Range of motion: intact in all extremities. 20:28 Reassessment: Patient appears in no apparent distress at this time. Patient and/or jb4 family updated on plan of care and expected duration. Pain level reassessed. Patient is alert, oriented x 3, equal unlabored respirations, skin warm/dry/pink. 21:30 Reassessment: Patient appears in no apparent distress at this time. Patient and/or jb4 family updated on plan of care and expected duration. Pain level reassessed. Patient is alert, oriented x 3, equal unlabored respirations, skin warm/dry/pink. 23:00 Reassessment: Patient appears in no apparent distress at this time. Patient and/or jb4 family updated on plan of care and expected duration. Pain level reassessed. Patient is alert, oriented x 3, equal unlabored respirations, skin warm/dry/pink. Vital Signs: 18:51 BP 105 / 65; Pulse 80; Resp 16; Temp 98.3(O); Pulse Ox 95% ; Weight 44 kg; Height 5 ft. jb4 3 in. ; 20:15 BP 113 / 75; Pulse 85; Resp 16; Pulse Ox 94% on R/A; jb4 21:30 BP 147 / 6; Pulse 76; Resp 18; Pulse Ox 93% on R/A; jb4 23:00 BP 109 / 77; Pulse 83; Resp 21; Pulse Ox 94% on R/A; jb4 18:51 Body Mass Index 17.18 (44.00 kg, 160.02 cm) jb4 ED Course: 18:51 Patient arrived in ED. jb4 19:05 Triage completed. jb4 19:05 Arm band placed on right wrist. EKG completed in triage. Results shown to MD. jb4 19:07 [facility] kb 19:07 Osmar Elias MD is Attending Physician. kb 19:07 Patient has correct armband on for positive identification. Bed in low position. Call jb4 light in reach. Side rails up X 1. Provided Education on: plan of care. 19:24 XRAY Chest (1 view) In Process Unspecified. EDMS 20:28 Fly Elam, RN is Primary Nurse. jb4 22:12 CT Aorta for Dissection In Process Unspecified. EDMS 23:35 No provider procedures requiring assistance completed. IV discontinued, intact, jb4 bleeding controlled, No redness/swelling at site. Pressure dressing applied. Administered Medications: 21:11 Drug: fentaNYL (PF) IVP 25 mcg IVP once Route: IVP; Site: left antecubital; jb4 21:45 Follow up: Response: No adverse reaction; Marked relief of symptoms; Pain is decreased; jb4 RASS: Alert and Calm (0) Medication: 19:07 VIS not applicable for this client. jb4 Outcome: 23:23 Discharge ordered by MD. kb 23:35 Discharged to home ambulatory, jb4 23:35 Condition: stable 23:35 Discharge instructions given to patient, Instructed on discharge instructions, follow up and referral plans. Demonstrated understanding of instructions, follow-up care, 23:36 Patient left the ED. jb4 Signatures: Dispatcher [employer] EDMS Carri Ware FNP-C OPERATIONS COORDINATOR-Ckb Fly Elam, RN RN jb4
--- NOTE | 2024-08-24 23:24 | EDPHYS ---
Physician Documentation [facility] Name: Liliya Shah Age: 64 yrs Sex: Female : 1960 Arrival Date: 08/24/2024 Time: 18:37 Bed 19 Private MD: ED Physician Osmar Elias HPI: 08/24 23:19 This 64 yrs old Female presents to ER via EMS with complaints of back pain. kb 23:19 Pt is a 64 year old female who presents for pain to center of back ("in a [employer]") and kb left chest pain that started yesterday. States she has had this pain on and off but it finally scared her enough to come in today. Also reports numbness to left side of face that has been intermittent for one year. Denies numbness at this time. Denies shortness of breath, nausea, vomiting, cough, congestion, fever. Historical: - Allergies: 19:05 Sulfa (Sulfonamide Antibiotics); jb4 - Home Meds: 19:05 carvedilol 6.25 mg Oral tablet 1 tab daily [Active]; hydrocodone-acetaminophen 10-325 jb4 mg Oral tablet [Active]; amlodipine oral [Active]; - PMHx: 19:05 Hypertension; jb4 - PSHx: 19:05 hysterectomy; Tonsillectomy; jb4 - Immunization history:: Adult Immunizations up to date. - Infectious Disease History:: Denies. - Social history:: Smoking status: Patient reports the use of cigarette tobacco products, smokes one pack cigarettes per day. ROS: 23:17 Constitutional: As per HPI kb Exam: 23:17 Constitutional: This is a well developed, well nourished patient who is awake, alert, kb and in no acute distress. Head/Face: Normocephalic, atraumatic. ENT: Moist Mucous membranes Cardiovascular: Regular rate Respiratory: Respirations even and unlabored. No increased work of breathing. Talking in full sentences Abdomen/GI: Soft, non-tender. No distention Back: No spinal tenderness. No costovertebral tenderness. Full range of motion. Skin: Warm, dry with normal turgor. Normal color. MS/ Extremity: Pulses equal, no cyanosis. Neurovascular intact. Full, normal range of motion. Neuro: Awake and alert, GCS 15, oriented to person, place, time, and situation. 23:17 ECG was reviewed by the Attending Physician. Vital Signs: 18:51 BP 105 / 65; Pulse 80; Resp 16; Temp 98.3(O); Pulse Ox 95% ; Weight 44 kg; Height 5 ft. jb4 3 in. ; 20:15 BP 113 / 75; Pulse 85; Resp 16; Pulse Ox 94% on R/A; jb4 21:30 BP 147 / 6; Pulse 76; Resp 18; Pulse Ox 93% on R/A; jb4 23:00 BP 109 / 77; Pulse 83; Resp 21; Pulse Ox 94% on R/A; jb4 18:51 Body Mass Index 17.18 (44.00 kg, 160.02 cm) jb4 MDM: 19:08 Medical Screening Exam initiated kb 23:17 The patient was not given aspirin in the Emergency Department. Administered by EMS. kb Data reviewed: vital signs, nurses notes. 23:18 Differential diagnosis: abnormal EKG, acute myocardial infarction, AAA, musculoskeletal kb pain. Historians other than the Patient: EMS: [facility]. Care significantly affected by the following chronic conditions: Hypertension. Counseling: I had a detailed discussion with the patient and/or guardian regarding the historical points, exam findings, and any diagnostic results supporting the discharge/admit diagnosis, lab results, radiology results, the need for outpatient follow up, a family practitioner, to return to the emergency department if symptoms worsen or persist or if there are any questions or concerns that arise at home. ED course: HEART score 2. 08/24 19:08 Order name: Basic Metabolic Panel; Complete Time: 19:46 kb 08/24 19:08 Order name: CBC with Diff; Complete Time: 19:23 kb 08/24 19:08 Order name: Magnesium; Complete Time: 19:46 kb 08/24 19:08 Order name: NT PRO-BNP; Complete Time: 19:46 kb 08/24 19:08 Order name: Troponin HS; Complete Time: 19:46 kb 09 19:08 Order name: XRAY Chest (1 view); Complete Time: 20:20 kb 08/24 20:48 Order name: CT Aorta for Dissection; Complete Time: 23:18 kb 08/24 19:08 Order name: EKG; Complete Time: 19:08 kb 08/24 19:08 Order name: Cardiac monitoring; Complete Time: 19:09 kb 08/24 19:08 Order name: EKG - Nurse/Tech; Complete Time: 19:09 kb 08/24 19:08 Order name: IV Saline Lock; Complete Time: 19:09 kb 08/24 19:08 Order name: Labs collected and sent; Complete Time: 19:09 kb 08/24 19:08 Order name: O2 Per Protocol; Complete Time: 19:09 kb 08/24 19:08 Order name: O2 Sat Monitoring; Complete Time: 19:09 kb EC:17 Rate is 81 beats/min. Rhythm is regular. QRS Andrews is Normal. NC interval is normal at kb 122 msec. QRS interval is normal at 76 msec. QT interval is normal at 427 msec. Administered Medications: 21:11 Drug: fentaNYL (PF) IVP 25 mcg IVP once Route: IVP; Site: left antecubital; jb4 21:45 Follow up: Response: No adverse reaction; Marked relief of symptoms; Pain is decreased; jb4 RASS: Alert and Calm (0) Disposition Summary: 08/24/24 23:23 Discharge Ordered Notes: Location: Home kb Condition: Stable kb Diagnosis - Chest pain, unspecified kb - Mid back pain kb - Healing rib fractures on left kb Followup: kb - With: Emergency Department - When: As needed - Reason: Worsening of condition Followup: kb - With: Private Physician - When: 2 - 3 days - Reason: Recheck today's complaints, Continuance of care, Re-evaluation by your physician Discharge Instructions: - Discharge Summary Sheet kb - Nonspecific Chest Pain, Adult, [id number] kb - Rib Fracture, [id number] kb Forms: - Medication Reconciliation Form kb - Antibiotic Education kb - Prescription Opioid Use kb - Patient Portal Instructions kb - Leadership Thank You Letter kb Signatures: Dispatcher [employer] EDMS Carri Ware, BLIND CLEANER-C BLIND CLEANER-Fly Faustin, RN RN jb4 Corrections: (The following items were deleted from the chart) 19:09 19:08 BASIC METABOLIC PANEL+C.LAB.BRZ ordered. EDMS EDMS 19:09 19:08 CBC+H.LAB.BRZ ordered. EDMS EDMS 19:09 19:08 MAGNESIUM+C.LAB.BRZ ordered. EDMS EDMS 19:09 19:08 PROBNP+C.LAB.BRZ ordered. EDMS EDMS 19: 19:08 Troponin High Sensitivity+C.LAB.BRZ ordered. EDMS EDMS 23 23:19 Pt is a 64 year old female . kb kb
[2024-08-25 05:18] VITALS: TEMP 98.3
[2024-08-25 05:22] VITALS: BP 109/77; O2SAT 94
== END 2024-08-24 23:36 | disposition home or self-care (01) ==
LOC: ER 18:37
DX: R07.9 Chest pain, unspecified (principal); M54.9 Dorsalgia, unspecified; S22.42XD Multiple fractures of ribs, left side, subsequent encounter for fracture with routine healing; I10 Essential (primary) hypertension; F17.210 Nicotine dependence, cigarettes, uncomplicated
CPT/HCPCS: 85025; 80048; 36415; 83735; 84484; 83880; 71275; 74175; 71045; 96374; 99284; Q9967; J3010